=== PATIENT | male | born 1990 | race Caucasian/White ===

== ENCOUNTER 2019-03-12 16:28 | Emergency (ER) | payer SELFPAY ==
[2019-03-12] MEDS ORDERED: Acetaminophen 500 MG TAB ONE (17:03)
== END 2019-03-12 17:06 | disposition home or self-care (01) ==
LOC: NAV ERS 16:28
DX: F41.9 Anxiety disorder, unspecified (principal); F32.9 Major depressive disorder, single episode, unspecified
CPT/HCPCS: 99281